=== PATIENT | male | born 1975 | race Caucasian/White ===

== ENCOUNTER 2018-11-12 10:49 | Emergency (ER) | payer MEDICAID, OTHER ==
[~2018-11-12] VITALS: Ht 180.3 cm; Wt 78.0 kg
[2018-11-12] MEDS ORDERED: CLOTRIMAZOLE 1% CREAM 30GM TOP SCH (13:00)
[2018-11-12 13:24] VITALS: BP 121/73
[2018-11-12] MEDS ORDERED: TOLNAFTATE 1% CREAM 15GM TOP SCH (21:00)
== END 2018-11-12 13:24 | disposition home or self-care (01) ==
LOC: ER 11:22
DX: B35.3 Tinea pedis (principal); E11.9 Type 2 diabetes mellitus without complications; F15.10 Other stimulant abuse, uncomplicated; F14.10 Cocaine abuse, uncomplicated; F11.10 Opioid abuse, uncomplicated; F12.10 Cannabis abuse, uncomplicated; F17.210 Nicotine dependence, cigarettes, uncomplicated; Z71.6 Tobacco abuse counseling; Z59.0 Homelessness
CPT/HCPCS: 99283; 99406